=== PATIENT | male | born 1945 | race Caucasian/White ===

== ENCOUNTER 2023-08-27 23:04 | Emergency (ER) | payer MEDICARE, OTHER, SELFPAY ==
--- NOTE | ~2023-08-27 | CT_ITS ---
EXAMINATION: CT brain wo con DATE: 08/28/2023 00:41 INDICATION: Head injury TECHNIQUE: Computed tomography (CT) of the head was performed without intravenous contrast. The mA wa s adjusted according to patient size. Iterative reconstruction technique was employed. Exam dose: 75 7.00 mGy-cm total exam DLP. COMPARISON: None FINDINGS: Left vertebral artery and bilateral carotid siphon internal carotid artery calcifications. There is nonspecific diminished attenuation of the cerebral white matter, likely due to chronic small vessel ischemic changes. There is focal diminished attenuation high over the right frontal and parietal lobe area which may re present encephalomalacia secondary to prior insult such as cerebrovascular accident or hematoma, less likely edema associated with mass lesion. Consider repeat CT head with IV contrast material or MR ex amination as clinically appropriate. No prior CT examination of the head is available for comparison. No intracranial mass lesion or hemorrhage, midline shift or mass effect effect is noted otherwise. No subdural or epidural hematoma. No skull fracture or bone destruction is detected. A very small fluid level is noted in the posterior dependent left maxillary sinus. The paranasal sinu ses and mastoid air cells are otherwise unremarkable. No skull fracture or bone destruction. 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 If further evaluation is indicated, consider CT examination with IV contrast material or MR examination No acute intracranial finding or skull fracture Small fluid level of left maxillary sinus Reviewed, dictated and finalized at [facility]. Reviewed, dictated and finalized at [facility]. 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 If further evaluation is indicated, c onsider CT examination with IV contrast material or MR examination No acute intracranial finding or skull fracture Small fluid level of left maxillary sinus
--- NOTE | ~2023-08-27 | CT_ITS ---
EXAMINATION: CT cervical spine wo con DATE: 08/28/2023 00:42 INDICATION: Head injury from fall TECHNIQUE: Computed tomography (CT) of the cervical spine was performed without intravenous contrast. Automated exposure control and iterative reconstruction technique were employed. Exam dose: 311.00 mGy-cm total exam DLP. COMPARISON: None FINDINGS: There is reversal of cervical curvature which may be due to muscle spasm. No fracture or dislocation or locked facet or prevertebral soft tissue swelling is detected. Prominent degenerative change at the articulation of anterior arch of C1 and the odontoid process of C2. Moderately severe degenerative disc disease at C2-3, C3-4 and severe degenerative disc disease at C4- 5, C5-6 and C6-7, with associated mild retrolisthesis at C5-6 and C6-7. There is degenerative change at the apophyseal joints bilaterally, particularly in the upper mid cerv ical spine on the right. Prominent uncovertebral joint spurring is noted on the right at C2-3 and C3-4 and bilaterally at C4-5 , C5-6 and C6-7. . IMPRESSION: Reversal cervical curvature which may be due to muscle spasm Severe cervical spondylosis No fracture or dislocation Reviewed, dictated and finalized at [facility]. Reviewed, dictated and finalized at [facility].
--- NOTE | ~2023-08-27 | XR_ITS ---
XR wrist LT min 3V DATE: 08/28/2023 00:48 INDICATION: Injury, pain TECHNIQUE: 4 views COMPARISON: None FINDINGS: There is approximate 4.5 x 5 mm ossicle at the lateral aspect of the trapezium bone, which may represent an avulsion fracture, most likely chronic, as the margins appear relatively smooth. No other fracture or dislocation is evident. There is prominent osteoarthritic change at the first carpometacarpal joint. No periosteal reaction or bone destruction, erosive change or chondrocalcinosis. 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 Reviewed, dictated and finalized at [facility]. 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
[2023-08-27 23:15] VITALS: BP 131/95; PULSE 61; RESP 18; TEMP 36.4; O2SAT 100
--- NOTE | 2023-08-28 01:56 | ED.FALL ---
HPI - Fall General Chief Complaint: Fall Stated Complaint: fall out of bed, head injury Time Seen by Provider: 08/28/23 01:53 Source: patient and family () Mode of arrival: ambulatory Limitations: no limitations History of Present Illness HPI Narrative: Patient fell out of bed while getting out of bed, hitting head on hotel nightstand. Out of town, visiting for grandson's birthday. No syncope/loss of consciousnes. On Plavix after cardiac stent. Receives his care throught [facility] in [place]. Currently being worked up for memory issues and a concern for possible past mild intracranial pathology (small hemorrhage?). Sustained a left ear laceration. Denies neck pain. Chronic numbness in left hand which is also being worked up through [facility]. Shut his hand in a door on Tuesday. Was complaining in triage of left wrist pain but denies this currently. Related Data Home Medications Medication Instructions Recorded Confirmed aspirin 81 mg chewable tablet 81 mg PO DAILY 08/28/23 clopidogrel 75 mg tablet (Plavix) 75 mg PO DAILY 08/28/23 dexamethasone 0.5 mg tablet mg 08/28/23 rosuvastatin 10 mg tablet mg 08/28/23 Allergies Allergy/AdvReac Type Severity Reaction Status Date / Time No Known Allergies Allergy Verified 08/28/23 02:14 [facility] Social History Social History (Updated 08/29/23 @ 09:39 by Violetta Choudhary MD) Living arrangements: with family Additional living arrangements comments: /; [place] Exam Narrative: GENERAL: Well-appearing, well-nourished, and in no acute distress. HEAD: Normocephalic, atraumatic. EYES: Non injected, non icteric ENT: Nares clear, no rhinorrhea or epistaxis. Curvilinear partial avulsion of overlying skin at antihelix, approximately 2cm. No cartilage involvement. not thru and thru. No involvement of helix. NECK: Supple. CHEST: Speaking in complete sentences.. No respiratory distress. HEART: Regular rate and rhythm. . ABDOMEN: Soft, nondistended. EXTREMITIES: Normal range of motion. No edema. SKIN: Warm, dry, no rash. NEURO: No focal deficits. Alert and oriented. PSYCH: Normal mood and affect. Course Vital Signs Vital signs: Vital Signs Temperature 97.5 F L 08/27/23 23:15 Pulse Rate 61 08/27/23 23:15 Respiratory Rate 18 08/27/23 23:15 Blood Pressure 131/95 H 08/27/23 23:15 Pulse Oximetry 100 08/27/23 23:15 Oxygen Delivery Room Air 08/27/23 23:15 Temperature 97.5 F L 08/27/23 23:15 Pulse Rate 78 08/28/23 04:09 Respiratory Rate 20 08/28/23 04:09 Blood Pressure 134/76 08/28/23 04:09 Pulse Oximetry 98 08/28/23 04:09 Oxygen Delivery Room Air 08/27/23 23:15 Procedures Laceration Laceration 1: Date: 08/28/23 Site: other (ear) Side (If applicable): left Size (cm): 2 Description: other (curvilinear) Depth: simple, single layer Pre-repair: irrigated and deep structures intact ====== Skin Level ====== Skin layer closed with: other (chromic gut) Size (cm): 5-0 Number of sutures: 6 ====== Subcutaneous Layer ====== ====== Muscle Layer ====== ====== Tendon Layer ====== Dressing: No cartilaginous involvement but complex given area and degree of technique cavity involved with repairing superficial tissues, reapproximating. Simple interrupted sutures performed through the skin at 2-3 mm intervals. RN is advised to apply head wrap technique apply petroleum gauze to the wound and using it to pack the helix. A gauze was applied posterior to the ear and other is generous what covering ear entirely before compressing this dressing tightly to the head by wrapping gauze/Kerlix/Coban around the circumference of the head. Nerve Block Nerve Block 1: Nerve block date: 08/28/23 Local Anesthetic: lidocaine 1% Amount of anesthesia used (mL): 10 Side: left Nerve Blocks: other (Auricular)
[2023-08-28] MEDS: ACETAMINOPHEN 500 MG TABLET 1000 MG PO (02:18)
[2023-08-28] MEDS: LIDOCAINE HCL 1% LOCAL INJ 10 ML VIAL INFILTRATE (02:18)
--- NOTE | 2023-08-28 03:10 | PC.NURSE ---
erp at bedside for laceration repair
[2023-08-28 04:09] VITALS: BP 134/76; PULSE 78; RESP 20; O2SAT 98
== END 2023-08-28 04:12 | disposition home or self-care (01) ==
PROVIDERS: Emergency Provider Student in an Organized Health Care Education/Training Program
DX: S01.312A Laceration without foreign body of left ear, initial encounter (principal); W06.XXXA Fall from bed, initial encounter; Z79.82 Long term (current) use of aspirin
CPT/HCPCS: 12011; 70450; 72125; 73110; 99284; A9270